=== PATIENT | male | born 1960 | race Caucasian/White ===

== ENCOUNTER → 2016-06-10 | Outpatient (CLI) | payer BC ==
--- NOTE | 2016-06-11 09:23 | XR ---
EXAMINATION TYPE: XR ribs RT w pa chest xray DATE OF EXAM: 06/10/2016 4:40 PM COMPARISON: NONE HISTORY: Pain post fall FINDINGS: Hypertrophic change of the spine noted. No pleural effusion or pneumothorax. Rib cage is intact. No acute displaced rib fracture. IMPRESSION: 1. No acute displaced rib fracture
== END | disposition home or self-care (01) ==
LOC: RADXRYALE 16:25
PROVIDERS: ATTEND Internal Medicine
DX: R07.81 Pleurodynia (principal)

== ENCOUNTER → 2017-08-07 | Outpatient (CLI) | payer BC ==
--- NOTE | 2017-08-07 08:56 | XR ---
EXAMINATION TYPE: XR abdomen 1V DATE OF EXAM: 08/07/2017 HISTORY: Pain Comparison: 07/23/2010 Single KUB is submitted for interpretation. Findings: Right renal calculi: None Visualized. Right ureteral calculi: None Visualized. Left renal calculi: Lower pole left renal calculi with maximal measurements of 8.6 mm and 6.1 mm. 5 mm upper pole calculus difficult to exclude. No additional calculi seen with certainty. Left ureteral calculi: None Visualized. Pelvic calcifications: None Visualized. Bowel gas pattern is unremarkable. No free air. No mass effects. IMPRESSION: 1. Left renal calculi.
== END | disposition home or self-care (01) ==
LOC: RADXRMAIN 08:22
PROVIDERS: ATTEND Urology
DX: N20.0 Calculus of kidney (principal)
CPT/HCPCS: 74018

== ENCOUNTER → 2017-12-09 | Outpatient (CLI) | payer BC ==
--- NOTE | 2017-12-09 10:23 | XR ---
EXAMINATION TYPE: XR knee limited RT DATE OF EXAM: 12/09/2017 CLINICAL HISTORY: Recent strain and patellar pain. TECHNIQUE: Two views of the right knee are obtained. COMPARISON: None. FINDINGS: There is no acute fracture/dislocation evident in right knee. There is a protuberant enthe sophyte at the quadriceps tendinous insertion on the superior patellar pole. Very mild tricompartment al joint space narrowing and very small marginal osteophytes are seen. Possible small chondroid matri x lesion within the central tibial epiphysis is seen on one view only and could relate to a small enc hondroma. No suprapatellar joint effusion. The overlying soft tissue appears unremarkable. IMPRESSION: 1. No acute fracture or dislocation in the right knee. Given the patellar tenderness sunrise view cou ld be obtained if there is further clinical concern. 2. Protuberant enthesophyte at the quadriceps tendon insertion. 3. Mild tricompartmental arthropathy.
== END | disposition home or self-care (01) ==
LOC: RADXRYALE 09:30
PROVIDERS: ATTEND Internal Medicine
DX: M17.11 Unilateral primary osteoarthritis, right knee (principal)

== ENCOUNTER → 2018-08-24 | Outpatient (CLI) | payer BC ==
--- NOTE | 2018-08-24 11:19 | XR ---
Right hip HISTORY: Right hip pain 2 views of the right hip There is some marginal spurring present. Remodeling present at the acetabulum could be indicative of underlying femoral acetabular impingement, correlate. Bone mineralization and alignment maintained. J oint space may be slightly reduced. Vascular calcifications are present. impression: Osteoarthritis, correlate for possible femoral acetabular impingement.
== END | disposition home or self-care (01) ==
LOC: RADXRYALE 10:15
PROVIDERS: ATTEND Internal Medicine
DX: M16.11 Unilateral primary osteoarthritis, right hip (principal)
CPT/HCPCS: 73502

== ENCOUNTER → 2020-03-24 | Outpatient (CLI) | payer BC | END | disposition home or self-care (01) | LOC: LABWHC1 11:24 | PROVIDERS: ATTEND Internal Medicine | DX: Z20.828 Contact with and (suspected) exposure to other viral communicable diseases (principal) | CPT/HCPCS: U0003; C9803 ==

== ENCOUNTER → 2021-06-25 | Outpatient (CLI) | payer BC ==
--- NOTE | 2021-06-25 14:16 | XR ---
EXAMINATION TYPE: XR KUB DATE OF EXAM: 06/25/2021 Comparison: None Clinical History: 61-year-old male kidney stones, N20.0 Findings: Supine imaging limited for assessment of free air. Lung bases appear clear. Mild mild stool burden. No dilated small bowel loops. A couple calculi project at the left mid abdomen measuring 9 mm and 7 mm. Postsurgical change of L5-S1 posterior lumbar fusion with corresponding laminectomies. Some mild vasc ular calcifications are present in the pelvis. Mild degenerative change of both hips. Impression: 1. A couple left renal calculi measuring 9 mm and 7 mm. 2. Nonobstructive bowel gas pattern. Mild stool burden.
== END | disposition home or self-care (01) ==
LOC: RADXRMAIN 12:00
PROVIDERS: ATTEND Urology
DX: N20.0 Calculus of kidney (principal); R19.5 Other fecal abnormalities
CPT/HCPCS: 74018

== ENCOUNTER → 2023-01-30 | Outpatient (CLI) | payer BC ==
[2023-01-30 15:01] LABS: Albumin 4.4 d/dL (3.8-4.9); Protein, Total 6.8 d/dL (6.2-8.2)
[2023-01-30 15:22] LABS: T4, Free (Free Thyroxine) 1.17 ng/dL (0.80-1.80)
[2023-01-31 18:39] LABS: Gamma Globulin 1.09 d/dL (0.70-1.50)
== END | disposition home or self-care (01) ==
LOC: LABWHC1 10:41
PROVIDERS: ATTEND Psychiatry & Neurology Neurology
DX: G62.9 Polyneuropathy, unspecified (principal)
CPT/HCPCS: 36415; 82607; 82747; 84165; 84207; 84439; 84443; 85652; 86618